=== PATIENT | female | born 1980 | race Caucasian/White ===

== ENCOUNTER 2016-12-02 10:59 | Emergency (ER) | payer OTHER ==
[2016-12-02 11:07] VITALS: RESP 16; TEMP 98.2
--- NOTE | 2016-12-02 11:18 | EDPHY ---
H & P Stated Complaint: LRQ pain. sudden onset this am. - Personal History LMP (Females 10-55): 8-14 Days Ago Current Tetanus/Diphtheria Vaccine: Yes Current Tetanus Diphtheria and Acellular Pertussis (TDAP): Yes - Medical/Surgical History Hx Asthma: No Hx Chronic Respiratory Disease: No Hx Diabetes: No Hx Cardiac Disease: No Hx Renal Disease: No Hx Cirrhosis: No Hx Alcoholism: No Hx HIV/AIDS: No Hx Splenectomy or Spleen Trauma: No Other PMH: Denies - Social History Smoking Status: Never smoked Time Seen by Provider: 12/02/16 11:17 Constitutional: Initial Vital Signs Temperature (C) 36.8 C 12/02/16 11:03 Heart Rate 83 12/02/16 11:03 Respiratory Rate 16 12/02/16 11:03 Blood Pressure 123/83 H 12/02/16 11:03 O2 Sat (%) 98 12/02/16 11:03 O2 Delivery Mode Room Air Allergies/Adverse Reactions: No Known Allergies Allergy (Unverified 12/02/16 11:02) Home Medications: Medication Instructions Recorded NK [No Known Home Meds] 12/02/16 Medical Decision Making - Diagnostics Imaging Results: Imaging Impressions Abdomen Ultrasound 12/02/16 11:52 Impression: Nonvisualization of the appendix. Less than optimal study due to abundant bowel gas. Results discussed with Dr. Paul Perez. Pelvic/Renal Ultrasound 12/02/16 11:53 Impression: 1. No source for right-sided pelvic pain identified. 2. 3.6 cm uterine fibroid 3. Suspect hemorrhagic left ovarian cyst rather than a solid nodule. Recommend follow-up transvaginal ultrasound in 6-8 weeks. Results discussed with Dr. Paul Perez. Abdomen CT 12/02/16 15:00 Impression: 1. Normal appendix. 2. Proximal constipation without obvious chronic obstruction. 3. Small amount of free fluid in the cul-de-sac. Perhaps the patient has a leaking cyst. Results called to Dr. Paul Perez at 3:48 PM. General information for patients regarding this examination can be found at [email or web address]. If you have questions or comments about this report, please contact me at (hospital) or [phone] (cell). ED Course/Re-evaluation: CHIEF COMPLAINT: Abdominal cramping HISTORY OF PRESENT ILLNESS: The patient is a 35 y/o female arriving with her complaining of moderate abdominal cramping onset this morning around 09: 00, almost 3 hours ago. She describes the pain as similar to menstrual cramps, but much worse and without menstruation. Her LNMP was 2 weeks ago. She says the pain was initially so bad, "I was curled up on the floor for about an hour." Ibuprofen moderately alleviated. She denies associated nausea, diarrhea, fever, or dysuria. She is having normal bowel movements. She has never experienced these symptoms previously and has no history of abdominal surgeries. REVIEW OF SYSTEMS: A 10 point review of systems was performed and is negative with the exception of the elements mentioned in the history of present illness. PHYSICAL EXAM: HR, BP, O2 Sat, RR. Temp noted General Appearance: Alert, well hydrated, appropriate, and non-toxic appearing. Head: Atraumatic without scalp tenderness or obvious injury Eyes: Pupils equal, round, reactive to light and accommodation, EOMI, no trauma , no injection. Nose: Atraumatic, no rhinorrhea, clear. Throat: Mucus membranes moist. Neck: Supple, nontender, no lymphadenopathy. Respiratory: No retractions, no distress, no wheezes, and no accessory muscle use. Lungs are clear to auscultation bilaterally. Cardiovascular: Regular rate and rhythm, no murmurs, rubs, or gallops. Good capillary refill all extremities. Gastrointestinal: Abdomen is soft, RLQ tenderness over McBurney's point, non- distended, no masses, no rebound, no guarding, no peritoneal signs. Musculoskeletal: Normal active ROM of all extremities, atraumatic. Neurological: Alert, appropriate, and interactive. Nonfocal neuro exam. Skin: No rashes, good turgor, no nodules on palpation. Past medical history: Denies Past surgical history: Denies Family history: noncontributory Social history: at bedside DIFFERENTIAL DIAGNOSIS: The differential diagnosis for the patient's abdominal pain included but was not limited to ovarian cyst, pelvic inflammatory disease, ovarian torsion, urinary tract infection, ectopic , cholecystitis, and appendicitis. MEDICAL DECISION MAKING: This is a healthy 35 y/o female who presents with a few-hour history of cramping abdominal pain. She has moderate RLQ tenderness over McBurney's point, but has an otherwise unremarkable exam. She is afebrile. I have a high suspicion for early appendicitis. Plan for IV, labs, abdominal US, and pain management if needed. Patient signed out to Dr. Perez at shift change pending abdominal US. (Kofi Cintron) Other Provider: I assumed care of the patient at 2:00 p.m.. The patient was seen initially by Dr. Cintron who ordered ultrasounds of the patient's abdomen and pelvis. At 3:00 p.m. I was contacted by Dr. Foss who informs me the patient's appendix ultrasound study is nondiagnostic. I re-evaluated the patient. She continues to have ongoing mild right lower quadrant tenderness. She does not have a typical examination for appendicitis. I discussed with her the risks and benefits of additional imaging. She does consent undergo CT scan for further evaluation of appendicitis. 4:00 p.m.: Patient CT scan demonstrates a normal appearing appendix, there is constipation present, there is some free fluid present. At this point time I do feel the patient can be discharged home with instructions to take milk of magnesia for possible obstipation/constipation. The patient has been informed that we should see her back in the emergency department tomorrow for a repeat examination. The patient is comfortable with this plan. (Thomas Perez) - Data Points Laboratory Results: Laboratory Results 12/02/16 11:30 12/02/16 11:30 12/02/16 12/02/16 12/02/16 11:53 11:30 11:30 WBC 11.79 10^3/uL H 10^3/uL (3.80-9.50) RBC 5.21 10^6/uL 10^6/uL (4.18-5.33) Hgb 14.2 g/dL g/dL (12.6-16.3) Hct 42.6 % % (38.0-47.0) MCV 81.8 fL fL (81.5-99.8) MCH 27.3 pg L pg (27.9-34.1) MCHC 33.3 g/dL g/dL (32.4-36.7) RDW 13.4 % % (11.5-15.2) Plt Count 315 10^3/uL 10^3/uL (150-400) MPV 10.0 fL fL (8.7-11.7) Neut % (Auto) 80.1 % H % (39.3-74.2) Lymph % (Auto) 12.3 % L % (15.0-45.0) [place] % (Auto) 6.2 % % (4.5-13.0) Eos % (Auto) 0.5 % L % (0.6-7.6) Baso % (Auto) 0.3 % % (0.3-1.7) Nucleat RBC Rel Count 0.0 % % (0.0-0.2) Absolute Neuts (auto) 9.45 10^3/uL H 10^3/uL (1.70-6.50) Absolute Lymphs (auto) 1.45 10^3/uL 10^3/uL (1.00-3.00) Absolute Monos (auto) 0.73 10^3/uL 10^3/uL (0.30-0.80) Absolute Eos (auto) 0.06 10^3/uL 10^3/uL (0.03-0.40) Absolute Basos (auto) 0.03 10^3/uL 10^3/uL (0.02-0.10) Absolute Nucleated RBC 0.00 10^3/uL 10^3/uL (0-0.01) Immature Gran % 0.6 % % (0.0-1.1) Immature Gran # 0.07 10^3/uL 10^3/uL (0.00-0.10) Sodium 137 mEq/L mEq/L (134-144) Potassium 4.1 mEq/L mEq/L (3.5-5.2) Chloride 103 mEq/L mEq/L (97-110) Carbon Dioxide 22 mEq/l mEq/l (22-31) Anion Gap 12 mEq/L mEq/L (8-16) BUN 15 mg/dL mg/dL (7-23) Creatinine 0.8 mg/dL mg/dL (0.6-1.0) Estimated GFR > 60 Glucose 93 mg/dL mg/dL (70-100) Calcium 10.4 mg/dL mg/dL (8.5-10.4) Beta HCG, Qual NEGATIVE Departure - Departure Disposition: Home, Routine, Self-Care Clinical Impression: RLQ abdominal pain Condition: Good Instructions: Abdominal Pain (ED) Additional Instructions: Sometimes we are unable to diagnose an obvious cause of abdominal pain in the Emergency Department. Based upon our evaluation today, I believe the most likely explanation for your pain is constipation. Because more serious conditions can be difficult to diagnose early in the course of their presentation, we ask that you return to the Emergency Department in 8-12 hours for a recheck if you are still having pain. This is necessary to exclude the development of a more serious condition such as appendicitis or other intra- abdominal emergency. In the event your pain markedly increases before that time or you develop intractable vomiting or fever return to the Emergency Department immediately. Referrals: Kristina Landry MD [Primary Care Provider] - As per Instructions Report Scribed for: Kofi Cintron Report Scribed by: Nicky Gutierrez Date of Report: 12/02/16 Time of Report: 11:39
[2016-12-02 12:00] LABS: % IMMATURE GRANULYOCYTES 0.6 % (0.0-1.1); ABSOLUTE IMMATURE GRANULOCYTES 0.07 10^3/uL (0.00-0.10); ADD DIFF? NO; ADD MORPH? NO; ADD SCAN? NO; ATYPICAL LYMPHOCYTE FLAG 20 (0-99); FRAGMENT RBC FLAG 0 (0-99); HEMATOCRIT 42.6 % (38.0-47.0); HEMOGLOBIN 14.2 g/dL (12.6-16.3); LEFT SHIFT FLG 0 (0-99); LIPEMIA HEMOLYSIS FLAG 80 (0-99); MEAN CELL HEMOGLOBIN 27.3 pg (27.9-34.1); MEAN CELL HEMOGLOBIN CONCENTR. 33.3 g/dL (32.4-36.7); MEAN CELL VOLUME 81.8 fL (81.5-99.8); PLATELET CLUMPS FLAG 20 (0-99); PLATELET COUNT 315 10^3/uL (150-400); RED BLOOD CELL COUNT 5.21 10^6/uL (4.18-5.33); RED CELL DISTRIBUTION WIDTH 13.4 % (11.5-15.2)
[2016-12-02 12:12] LABS: ANION GAP 12 mEq/L (8-16); CALCIUM 10.4 mg/dL (8.5-10.4); CARBON DIOXIDE 22 mEq/l (22-31); CHLORIDE 103 mEq/L (97-110); CREATININE 0.8 mg/dL (0.6-1.0); GLOMERULAR FILTRATION RATE > 60; GLUCOSE 93 mg/dL (70-100); POTASSIUM 4.1 mEq/L (3.5-5.2); SODIUM 137 mEq/L (134-144)
[2016-12-02] MEDS ORDERED: IOPAMIDOL (ISOVUE-300) 100 ML BTL ONE (15:04)
[2016-12-02 16:13] VITALS: BP 121/78; PULSE 86; O2SAT 95
== END 2016-12-02 16:13 | disposition home or self-care (01) ==
DX: R10.31 Right lower quadrant pain (principal)
CPT/HCPCS: Q9967

== ENCOUNTER → 2017-01-08 | Outpatient (CLI) | payer OTHER | LOC: FIMAGING 16:55 | PROVIDERS: ATTEND Internal Medicine | DX: N83.201 Unspecified ovarian cyst, right side (principal); N25.9 Disorder resulting from impaired renal tubular function, unspecified ==